=== PATIENT | female | born 1980 | race Caucasian/White ===

== ENCOUNTER → 2018-07-20 | Outpatient (CLI) | payer BC ==
[~2018-07-20] MED LIST: ADRIAMYCIN; APRE80; ASPI325 PO; ASPI81CH PO; BIRTH CONTROL; BLEOMYCIN; BUDE32NIS; CARB50; CEPH500 PO; CYAN500 PO; CYCL10 PO; DECADRON; EPIN.3I IM; EPOE20I; ESOM20; FAMO40 PO; FEXO180; FILG480I; HYDACE5 PO; HYDACE5325 PO; HYDPAM50 PO; IBUP200; IBUP600 PO; KETO10 PO; LORA.5; LORA10ER; METO10 PO; MULVITMIND PO; MULVITMINE; NAPR500; NAPR550 PO; ONDA4; ONDA4 PO; OXYACE5T PO; PRED20 PO; PROM25 PO; RXHYDACE PO; SILSUL1TC TOP; SUMA6I; Verotin-Gr Cap1 EACH PO; Vitamin D PO; [UNRECOGNIZED DRUG - CODE]; [UNRECOGNIZED DRUG - OTHER]; [UNRECOGNIZED DRUG - OTHER]; [UNRECOGNIZED DRUG - REMARK]
[2018-07-21 15:07] LABS: HPV 16 Negative (Negative); HPV 18 Negative (Negative); HPV OTHER HR TYPES Negative (Negative)
== END | disposition home or self-care (01) ==
LOC: LAB SHORT 14:48 → LAB 14:48
PROVIDERS: Obstetrics & Gynecology
DX: Z01.419 Encounter for gynecological examination (general) (routine) without abnormal findings (principal)
CPT/HCPCS: 87624; G0123

== ENCOUNTER 2018-10-14 10:56 | Day surgery (SDC) | payer BC ==
[2018-10-16] MEDS ORDERED: Solu-Medrol1000 MG IV (11:30)
== END 2018-10-14 14:50 | disposition home or self-care (01) ==
LOC: ATC 10:56
DX: G35 Multiple sclerosis (principal); J45.909 Unspecified asthma, uncomplicated; G62.9 Polyneuropathy, unspecified; E55.9 Vitamin D deficiency, unspecified; R53.83 Other fatigue; Z79.899 Other long term (current) drug therapy
CPT/HCPCS: 96365; J2930

== ENCOUNTER 2018-10-15 07:47 | Day surgery (SDC) | payer BC ==
[2018-10-16] MEDS ORDERED: Solu-Medrol1000 MG IV (11:30)
== END 2018-10-15 12:00 | disposition home or self-care (01) ==
LOC: ATC 07:47
DX: G35 Multiple sclerosis (principal); J45.909 Unspecified asthma, uncomplicated; G62.9 Polyneuropathy, unspecified; E55.9 Vitamin D deficiency, unspecified; R53.83 Other fatigue; Z79.899 Other long term (current) drug therapy
CPT/HCPCS: J2930

== ENCOUNTER 2021-11-13 07:53 | Emergency (ER) | payer OTHER, BC ==
[~2021-11-13] VITALS: Ht 180.3 cm; Wt 116.1 kg
[~2021-11-13 07:53] MED LIST changes: +Solu-Medrol1000 MG IV
== END 2021-11-13 11:40 | disposition home or self-care (01) ==
LOC: ER 07:53
DX: M25.561 Pain in right knee (principal); W01.0XXA Fall on same level from slipping, tripping and stumbling without subsequent striking against object, initial encounter
CPT/HCPCS: 73564; 96372; 99283-25; J1885

== ENCOUNTER → 2021-12-24 | Outpatient (CLI) | payer BC ==
[2021-12-24 17:01] LABS: Albumin, Blood 3.4 g/dL (3.4-5.0); Bilirubin, Total 0.4 mg/dL (0.1-1.0); Bun/Creatinine Ratio 18.4 (12.0-20.0); Calcium, Blood 8.7 mg/dL (8.5-10.1); Creatinine, Blood 0.6 mg/dL (0.40-1.00); Globulin, Blood 3.3 g/dL (2.2-4.0); Phosphorus, Blood 2.7 mg/dL (2.5-4.9); Potassium, Blood 3.9 mmol/L (3.5-5.5); Total Protein, Blood 6.7 g/dL (6.4-8.2)
== END | disposition home or self-care (01) ==
LOC: LAB SHORT 11:00
PROVIDERS: Internal Medicine Hematology & Oncology
DX: G35 Multiple sclerosis (principal); C81.90 Hodgkin lymphoma, unspecified, unspecified site
CPT/HCPCS: 80053; 83615; 84100

== ENCOUNTER → 2022-10-10 | Outpatient (CLI) | payer BC ==
[2022-10-10 16:01] LABS: Albumin, Blood 3.5 g/dL (3.4-5.0); Bilirubin, Total 0.3 mg/dL (0.1-1.0); Bun/Creatinine Ratio 20.6 (12.0-20.0); Calcium, Blood 8.9 mg/dL (8.5-10.1); Creatinine, Blood 0.58 mg/dL (0.40-1.00); Globulin, Blood 3.4 g/dL (2.2-4.0); Phosphorus, Blood 3.4 mg/dL (2.5-4.9); Potassium, Blood 3.8 mmol/L (3.5-5.5); Total Protein, Blood 6.9 g/dL (6.4-8.2)
== END ==
LOC: LAB 13:31 → LAB SHORT 13:31
PROVIDERS: Internal Medicine Hematology & Oncology
DX: G35 Multiple sclerosis (principal); C81.90 Hodgkin lymphoma, unspecified, unspecified site; G51.0 Bell's palsy; E53.8 Deficiency of other specified B group vitamins
CPT/HCPCS: 80053; 82607; 82746; 84100; 85651; 86038

== ENCOUNTER → 2023-03-02 | Outpatient (CLI) | payer BC ==
[2023-03-02 20:03] LABS: BASOPHILS ABSOLUTE AUTO 0.08 K/mm3 (0.00-0.23); BASOPHILS PERCENT AUTO 1 % (0-2); EOSINOPHILS ABSOLUTE AUTO 0.06 K/mm3 (0.00-0.68); EOSINOPHILS PERCENT AUTO 0 % (0-6); Hemoglobin 15.3 g/dL (11.5-16.0); IMMATURE GRAN PERCENT AUTO 3 % (0-1); LYMPHOCYTES ABSOLUTE AUTO 1.83 K/mm3 (0.84-5.20); LYMPHOCYTES PERCENT AUTO 13 % (21-46); MONOCYTES ABSOLUTE AUTO 0.51 K/mm3 (0.16-1.47); MONOCYTES PERCENT AUTO 4 % (4-13); Mean Corpuscular HGB 28.5 pg (26.0-34.0); Mean Corpuscular HGB Conc 33.3 g/dL (31.5-36.5); Mean Corpuscular Volume 86 fL (80-100); Mean Platelet Volume 10.4 fL (9.1-12.4); NEUTROPHILS PERCENT AUTO 79 % (41-73); Platelet Count 294 K/mm3 (150-400); RDW Coefficient Variation 14.3 % (11.7-14.2); RDW Standard Deviation 44.6 fL (35.1-46.3); Red Blood Cell Count 5.37 M/mm3 (3.80-5.20); White Blood Cell Count 13.78 K/mm3 (4.00-11.30)
[2023-03-02 20:29] LABS: Albumin, Blood 3.1 g/dL (3.4-5.0); Albumin/Globulin Ratio 1.1 (0.8-1.8); Bilirubin, Total 0.1 mg/dL (0.1-1.0); Bun/Creatinine Ratio 34.8 (12.0-20.0); Calcium, Blood 8.3 mg/dL (8.5-10.1); Creatinine, Blood 0.49 mg/dL (0.40-1.00); Globulin, Blood 2.7 g/dL (2.2-4.0); Phosphorus, Blood 3.1 mg/dL (2.5-4.9); Potassium, Blood 4.2 mmol/L (3.5-5.5); Total Protein, Blood 5.8 g/dL (6.4-8.2)
== END | disposition home or self-care (01) ==
LOC: LAB SHORT 18:26
PROVIDERS: Internal Medicine Hematology & Oncology
DX: G35 Multiple sclerosis (principal)
CPT/HCPCS: 80053; 84100; 85025